=== PATIENT | female | born 1995 | race Caucasian/White ===

== ENCOUNTER 2017-03-18 13:23 | Emergency (ER) | payer OTHER ==
[2017-03-18 14:11] VITALS: BP 112/64; RESP 18; TEMP 97.8; O2SAT 100
[2017-03-18 14:24] VITALS: BMI 19.1
[2017-03-18] MEDS ORDERED: Amoxicillin-Clav 875-125 mg Tab PO STA (14:35)
[2017-03-18] MEDS ORDERED: Bacitracin 500 Units/gm Oint Foilpak UD TOP ONE (14:35)
--- NOTE | 2017-03-18 14:37 | C.PDOC ---
History Of Present Illness 21 year old female reports her cat scratched and bit her today. Her cat is fully vaccinated. Patient UTD with tetanus. skin: multiple linear superficial excoriation from cat scratch on right shoulder , upper back, right lower leg and small superficial puncture bite wound to right dorsal foot. right shoulder has 3cm deep excoriation, no active bleeding. Time Seen by Provider: 03/18/17 14:40 Chief Complaint (Nursing): Bite History Per: Patient History/Exam Limitations: no limitations Onset/Duration Of Symptoms: Days Past Medical History Reviewed: Historical Data, Nursing Documentation, Vital Signs Vital Signs: Last Vital Signs Temp 97.8 F 03/18/17 14:10 Pulse 75 03/18/17 15:04 Resp 18 03/18/17 15:04 BP 112/64 03/18/17 14:10 Pulse Ox 100 03/18/17 15:25 - Medical History PMH: No Chronic Diseases Surgical History: No Surg Hx Family History: States: No Known Family Hx - Social History Hx Tobacco Use: No Hx Alcohol Use: No Hx Substance Use: No - Immunization History Hx Tetanus Toxoid Vaccination: Yes Hx Influenza Vaccination: Yes Hx Pneumococcal Vaccination: No Review Of Systems Except As Marked, All Systems Reviewed And Found Negative. Constitutional: Negative for: Fever, Chills Skin: Positive for: Other (Scratch from cat.) Neurological: Negative for: Weakness, Numbness Physical Exam - Physical Exam Appears: Non-toxic, No Acute Distress Skin: Warm, Dry, No Rash, Other ((+) Multiple linear superficial excoriation from cat scratch on right shoulder, upper back, right lower leg and small superficial puncture bite wound to right dorsal foot. Right shoulder has 3cm deep excoriation. No active bleeding.) Head: Atraumatic, Normacephalic Eye(s): bilateral: Normal Inspection, EOMI Nose: Normal Oral Mucosa: Moist Neck: Normal ROM Chest: Symmetrical Extremity: Bilateral: Atraumatic, Normal Color And Temperature, Normal ROM Neurological/Psych: Oriented x3, Normal Speech Gait: Steady ED Course And Treatment O2 Sat by Pulse Oximetry: 100 (RA) Pulse Ox Interpretation: Normal Medical Decision Making Medical Decision Making: Patient with multiple excoriations from cat scratch on right shoulder, upper back, right leg and bite wound to right foot. Areas cleansed with NS and peroxide. Foot wound thoroughly irrigated with NS. Steri strips x2 applied to shoulder abrasion that is exposed dermis. Augmentin and bacitracin was administered. Patient is UTD with Tetanus and her cat is vaccinated. Patient advised on wound care and to follow up for wound check in 2 days. Instructed to observe wound for any severe redness, swelling, pus and to return to hospital if this occurs. Disposition Counseled Patient/Family Regarding: Diagnosis, Need For Followup, Rx Given - Disposition Referrals: Lydia Bolton MD [Primary Care Provider] - Disposition: HOME/ ROUTINE Disposition Time: 14:35 Condition: STABLE Additional Instructions: Keep area clean and dry. May wash gently with soap and water, do not use alcohol or iodine solution. Change dressing 1-2 times daily. Return to ER if fever occurs, redness or swelling around wound, pus in the wound. Steri strips were applied to wound and will fall off on their own in few days Prescriptions: Amoxicillin/Clavulanate [Augmentin 875 MG-125 MG] 1 tab PO BID #14 tab Instructions: Amoxicillin/Clavulanate Potassium (By mouth), Abrasion (ED), Steristrips (ED) Forms: [employer] (Yakut) - POA Present On Arrival: None - Clinical Impression Clinical Impression: Cat scratch of multiple sites, Cat bite of foot - PA / [employer] / Resident Statement MD/DO has reviewed & agrees with the documentation as recorded. - Scribe Statement The provider has reviewed the documentation as recorded by the Scribe Qi Arizmendi All medical record entries made by the Scribe were at my direction and personally dictated by me. I have reviewed the chart and agree that the record accurately reflects my personal performance of the history, physical exam, medical decision making, and the department course for this patient. I have also personally directed, reviewed, and agree with the discharge instructions and disposition.
[2017-03-18] MEDS ORDERED: Bacitracin 500 Units/gm Oint Foilpak UD ONE (14:47)
[2017-03-18] MEDS ORDERED: Amoxicillin-Clav 875-125 mg Tab PO ONE (14:52)
[2017-03-18 15:05] VITALS: PULSE 75
== END 2017-03-18 15:06 | disposition home or self-care (01) ==
LOC: SUPCPDRO 13:23 → C.ER 13:23
DX: S91.331A Puncture wound without foreign body, right foot, initial encounter (principal); W55.01XA Bitten by cat, initial encounter; S40.211A Abrasion of right shoulder, initial encounter; S20.419A Abrasion of unspecified back wall of thorax, initial encounter; S80.811A Abrasion, right lower leg, initial encounter; W55.03XA Scratched by cat, initial encounter